=== PATIENT | female | born 1950 | race Caucasian/White ===

== ENCOUNTER 2017-09-08 12:03 | Emergency (ER) | payer MEDICARE, OTHER ==
[~2017-09-08] VITALS: Ht 162.6 cm; Wt 87.6 kg
[~2017-09-08 12:03] MED LIST changes: -BIOT10TA PO; -PRESCAP6 PO; -ROBA750T PO
[2017-09-08 12:06] VITALS: BP 147/76; PULSE 76; RESP 16; TEMP 99; O2SAT 96
[2017-09-08] MEDS ORDERED: PRESCAP6 PO (12:31)
[2017-09-08] MEDS ORDERED: BIOT10TA PO (12:31)
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
[2017-09-08] MEDS ORDERED: METHOCARBAMOL 500 MG TAB PO ONE (13:00)
[2017-09-08] MEDS ORDERED: KETOROLAC TROMETHAMINE 60 MG/2 ML (IM) VIAL IM ONE (13:00)
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
[2017-09-08] MEDS ORDERED: ROBA750T PO (14:14)
[2017-09-08 14:37] VITALS: RESP 15
== END 2017-09-08 14:44 | disposition home or self-care (01) ==
LOC: PHEFT 12:03
DX: S22.088A Other fracture of T11-T12 vertebra, initial encounter for closed fracture (principal); M79.604 Pain in right leg; M25.561 Pain in right knee; E11.9 Type 2 diabetes mellitus without complications; I10 Essential (primary) hypertension; E03.9 Hypothyroidism, unspecified; E78.00 Pure hypercholesterolemia, unspecified; K21.9 Gastro-esophageal reflux disease without esophagitis; V89.2XXA Person injured in unspecified motor-vehicle accident, traffic, initial encounter; Z79.4 Long term (current) use of insulin; Z79.82 Long term (current) use of aspirin; Z87.39 Personal history of other diseases of the musculoskeletal system and connective tissue
CPT/HCPCS: 72100; 96372; 99284; J1885

== ENCOUNTER → 2017-09-08 | Outpatient (CLI) | payer MEDICARE ==
[~2017-09-08] MED LIST: ASPI81TA23 PO; ATOR40TA16 PO; BIOT10TA PO; INSU-92; KETO2SHA TOPICAL; LANTINJ SQ; LEVO50TA4 PO; LISI-515 PO; METF1000 PO; OMEP40CA2 PO; OXYB5TAB8 PO; PRESCAP6 PO; ROBA750T PO
== END ==
LOC: HORT 15:49
PROVIDERS: ATTEND Nurse Practitioner Family
DX: Z47.89 Encounter for other orthopedic aftercare (principal)
CPT/HCPCS: L1050